=== PATIENT | male | born 1995 | race Caucasian/White ===

== ENCOUNTER 2022-10-06 17:07 | Emergency (ER) | payer OTHER, SELFPAY ==
[2022-10-06] VITALS (9 sets, daily range): BP systolic 125–149; BP diastolic 68–100; PULSE 103–118; RESP 18–20; TEMP 36.7; O2SAT 95–100; BMI 44.7
[2022-10-06 19:09] LABS: Basophils % 0.2 %; Eosinophils % 0.1 %; Hematocrit 46.8 % (42.0-52.0); Hemoglobin 15.9 g/dL (11.7-16.6); Lymphocytes # 0.5 10^3/uL (0.8-4.8); Lymphocytes % 2.9 %; Mean Corpuscular Hemoglobin 27.9 pg (28.0-34.0); Mean Corpuscular Volume 82.1 fl (80-94); Mean Platelet Volume 9.8 fL (7.4-10.4); Monocytes # 0.8 10^3/uL (0.2-0.9); Monocytes % 4.9 %; Neutrophils # 15.08 10^3/uL (1.8-7.7); Neutrophils % 91.6 %; Nucleated Red Blood Cells % 0 %; Platelet Count 408 10^3/cmm (130-400); Red Cell Distribution Width 13.4 % (12.1-15.1); White Blood Count 16.5 10^3/uL (4.0-10.0)
[2022-10-06 19:25] LABS: Alanine Aminotransferase 36 U/L (0-41); Albumin Level 4.8 g/dL (3.5-5.2); Alkaline Phosphatase 69 U/L (40-130); Anion Gap 21.7 (5-19); Aspartate Amino Transferase 24 U/L (0-40); Blood Urea Nitrogen 12 mg/dL (6-20); Calcium 9.7 mg/dL (8.5-10.5); Carbon Dioxide 22 mmol/L (22-29); Chloride 98 mmol/L (98-107); Globulin 3.5 g/dL (1.3-4.6); Glomerular Filtration Rate 101.2 mL/min (90-130); Glucose 115 mg/dL (65-115); Lipase 22 U/L (13-60); Osmolality Calculated 287 mOsm/kg (285-295); Potassium 3.7 mmol/L (3.5-5.1); Sodium 138 mmol/L (136-145); Total Bilirubin 0.6 mg/dL (0.15-1.2); Total Protein 8.3 g/dL (6.6-8.7)
--- NOTE | 2022-10-06 20:59 | XRR_ITS ---
PROCEDURE INFORMATION: Exam: XR Chest Exam date and time: 10/06/2022 9:10 PM Age: 26 years old Clinical indication: Cough and shortness of breath; Additional info: SOB TECHNIQUE: Imaging protocol: Radiologic exam of the chest. Views: 1 view. COMPARISON: No relevant prior studies available. FINDINGS: Lungs: Unremarkable. No consolidation. Pleural spaces: Unremarkable. No pleural effusion. No pneumothorax. Heart/Mediastinum: Unremarkable. No cardiomegaly. Bones/joints: Unremarkable. XR/XR chest 1V portable [id number] IMPRESSION: No acute findings.
--- NOTE | 2022-10-06 20:59 | USR_ITS ---
PROCEDURE INFORMATION: Exam: US Abdomen, Limited; Right Upper Quadrant Exam date and time: 10/06/2022 9:30 PM Age: 26 years old Clinical indication: Abdominal pain; Epigastric; Patient HX: S/P appy at age 15; Additional info: Ruq pain today TECHNIQUE: Imaging protocol: Real time ultrasound of the abdomen with image documentation. Limited exam focused on the right upper quadrant. COMPARISON: No relevant prior studies available. FINDINGS: Liver: Diffusely increased echogenicity of the liver parenchyma. No masses. Gallbladder: Normal. No gallstones. There is no gallbladder wall thickening. Biliary ducts: Normal. No stones. No dilation. Pancreas: Visualized pancreas is unremarkable. Right kidney: Right kidney measures 12.6 cm in length. No mass. No hydronephrosis. US/US gall bladder [id number] IMPRESSION: 1. No acute findings. 2. Hepatic steatosis.
--- NOTE | 2022-10-06 21:18 | W.ED.ABDPA2 ---
HPI - Abdominal Pain General: Chief Complaint: Abdominal Pain Stated Complaint: abd pain Time Seen by Provider: 10/06/22 20:22 Source: patient Mode of arrival: ambulatory Limitations: no limitations History of Present Illness: 26-year-old male who states he been having right upper quadrant abdominal pain throughout the day still to also had nausea and vomiting. States pain is sharp in nature he rates it a 6 out of 10 he denies any fevers he states it does radiate to his back slightly. Denies any worsening improving factors. Associated Symptoms: Reports nausea and vomiting; Denies chills, dysuria and fever(s) Review of Systems Const: Denies: fever(s), chills, body aches or change in appetite Eyes: Denies: blurry vision or eye discomfort ENMT: Denies: throat pain or dental pain Card: Denies: chest pain Resp: Denies: dyspnea GI: Reports: abdominal pain, nausea and vomiting : Denies: dysuria Musc: Denies: neck pain or back pain Skin/Breast: Denies: rash Neuro: Denies: headache(s) Psych: Denies: depression Angelo/Lymph: Denies: easy bruising All/Imm: Denies: urticaria PFSH ED PFSH: Surgical History History of appendectomy Social History (Updated 10/06/22 @ 21:26 by Cat Kirby MD) Substance/Drug Use: unknown Physical Exam Const: COMMON NORMALS: no acute distress, patient oriented x3 and healthy appearing HENMT: COMMON NORMALS: normocephalic and atraumatic HEAD & SCALP: normocephalic and atraumatic Eye: COMMON NORMALS: Equal, round and reactive pupils present and EOMs intact bilaterally PUPIL: Yes Equal, round and reactive pupils present Neck/C-Spine: COMMON NORMALS: full ROM and supple Chest: COMMONS NORMALS: normal inspection of the chest and normal palpation of entire chest wall Resp: COMMON NORMALS: normal respiratory effort, No retractions, No use of accessory muscles and clear to auscultation bilaterally AUSCULTATION: clear to auscultation bilaterally Cardio: COMMON NORMALS: regular rhythm and No murmurs present (Cardio) RATE: tachycardic RHYTHM: regular rhythm GI: COMMON NORMALS: Normal to inspection, nondistended, normoactive bowel sounds present, Soft to palpation and no masses PALPATION: Yes Soft to palpation and Yes Tenderness to palpation present (GI) Details: RUQ Extremity: COMMON NORMALS: normal to inspection and full ROM Neuro: COMMON NORMALS: patient oriented x3, moves all extremities and no focal motor deficits Psych: COMMON NORMALS: mental status grossly normal, Normal thought process present and cooperative THOUGHT PROCESS: Normal thought process present Skin: COMMON NORMALS: no rashes or lesions noted and no wounds GENERAL SKIN EXAM: no rashes or lesions noted Course Vital Signs: Vital signs: Vital Signs Temperature 98.0 F 10/06/22 17:43 Pulse Rate 103 H 10/06/22 23:05 Respiratory Rate 20 H 10/06/22 22:59 Blood Pressure 125/85 10/06/22 23:05 Pulse Oximetry 100 10/06/22 23:05 Oxygen Delivery Me thod 10/06/22 23:05 MDM - Abdominal Pain Medical Decision Making Patient presents here with right upper quadrant abdominal pain ultrasound CT shows no signs of cholecystitis pains improved we will start on pain meds getting follow-up with surgeon he is well-appearing here otherwise he stable for discharge. Lab Data 10/06/22 18:43 10/06/22 18:43 Labs/Radiology: Radiology Impressions Chest X-Ray 10/06/22 20:59 IMPRESSION: No acute findings. Gallbladder Ultrasound 10/06/22 20:59 IMPRESSION: 1. No acute findings. 2. Hepatic steatosis. Abdomen/Pelvis CT 10/06/22 22:20 IMPRESSION: 1. Mild nonspecific distention of the gallbladder. 2. No acute finding. COMMENTS: Consistent with the [employer]'s Incidental Findings Committee white paper (J Am Gabe Radiol 2018): Any incidental renal lesion less than 1 cm or classified as too small to characterize, or any incidental cystic renal lesion characterized as simple-appearing, is likely benign. No follow-up imaging is recommended for these lesions per consensus recommendations based on imaging criteria. Laboratory Results WBC 16.5 10^3/uL (4.0-10.0) H 10/06/22 18:43 RBC 5.70 10^6/uL (4.1-5.3) H 10/06/22 18:43 Hgb 15.9 g/dL (11.7-16.6) 10/06/22 18:43 Hct 46.8 % (42.0-52.0) 10/06/22 18:43 MCV 82.1 fl (80-94) 10/06/22 18:43 MCH 27.9 pg (28.0-34.0) L 10/06/22 18:43 MCHC 34.0 g/dL (30.0-36.0) 10/06/22 18:43 RDW 13.4 % (12.1-15.1) 10/06/22 18:43 Plt Count 408 10^3/cmm (130-400) H 10/06/22 18:43 MPV 9.8 fL (7.4-10.4) 10/06/22 18:43 Neut % (Auto) 91.6 % 10/06/22 18:43 Lymph % (Auto) 2.9 % 10/06/22 18:43 [place] % (Auto) 4.9 % 10/06/22 18:43 Eos % (Auto) 0.1 % 10/06/22 18:43 Baso % (Auto) 0.2 % 10/06/22 18:43 Neut # (Auto) 15.08 10^3/uL (1.8-7.7) H 10/06/22 18:43 Lymph # (Auto) 0.5 10^3/uL (0.8-4.8) L 10/06/22 18:43 [place] # (Auto) 0.8 10^3/uL (0.2-0.9) 10/06/22 18:43 Eos # (Auto) 0.0 10^3/uL (0.0-0.8) 10/06/22 18:43 Baso # (Auto) 0.0 10^3/uL (0.0-0.1) 10/06/22 18:43 Nucleated RBC % (auto) 0 % 10/06/22 18:43 Nucleated RBCs # 0.0 /100WBC 10/06/22 18:43 Sodium 138 mmol/L (136-145) 10/06/22 18:43 Potassium 3.7 mmol/L (3.5-5.1) 10/06/22 18:43 Chloride 98 mmol/L (98-107) 10/06/22 18:43 Carbon Dioxide 22 mmol/L (22-29) 10/06/22 18:43 Anion Gap 21.7 (5-19) H 10/06/22 18:43 BUN 12 mg/dL (6-20) 10/06/22 18:43 Creatinine 0.9 mg/dL (0.7-1.2) 10/06/22 18:43 GFR Calculation 101.2 mL/min (90-130) 10/06/22 18:43 Glucose 115 mg/dL (65-115) 10/06/22 18:43 Calculated Osmolality 287 mOsm/kg (285-295) 10/06/22 18:43 Calcium 9.7 mg/dL (8.5-10.5) 10/06/22 18:43 Total Bilirubin 0.6 mg/dL (0.15-1.2) 10/06/22 18:43 AST 24 U/L (0-40) 10/06/22 18:43 ALT 36 U/L (0-41) 10/06/22 18:43 Alkaline Phosphatase 69 U/L (40-130) 10/06/22 18:43 Troponin T Baseline 6 ng/L (0-15) 10/06/22 18:43 Troponin T 120 Minute 6.00 ng/L (0-15) 10/06/22 21:10 Delta Troponin T 0 ABS# (0-10) 10/06/22 21:10 Total Protein 8.3 g/dL (6.6-8.7) 10/06/22 18:43 Albumin 4.8 g/dL (3.5-5.2) 10/06/22 18:43 Globulin 3.5 g/dL (1.3-4.6) 10/06/22 18:43 Lipase 22 U/L (13-60) 10/06/22 18:43 Urine Color Yellow (Yellow) 10/06/22 21:40 Urine Appearance Clear (CLEAR) 10/06/22 21:40 Urine pH 6 (5-7) 10/06/22 21:40 Ur Specific [place] 1.015 (1.005-1.030) 10/06/22 21:40 Urine Protein Neg (Negative) 10/06/22 21:40 Urine Glucose (UA) Norm (Normal) 10/06/22 21:40 Urine Ketones Negative (Negative) 10/06/22 21:40 Urine Blood Neg (Negative) 10/06/22 21:40 Urine Nitrate Negative (Negative) 10/06/22 21:40 Urine Bilirubin Neg (Negative) 10/06/22 21:40 Urine Urobilinogen Norm mg/dL (Negative) 10/06/22 21:40 Ur Leukocyte Esterase Negative (Negative) 10/06/22 21:40 Discharge Plan Discharge Patient Disposition: Home Clinical Impression: Abdominal pain Condition: Stable Prescriptions: New hydrocodone-acetaminophen 5-325 mg tablet 1 tab PO Q6H PRN (Reason: pain) Qty: 14 0RF ondansetron 4 mg tablet,disintegrating 4 mg PO Q6H PRN (Reason: nausea and vomiting) Qty: 14 0RF Discharge Orders: Discharge ED (Routine); Ordered 10/06/22 Ordered By: Cat Kirby Referrals: Trevor Mary DO [Physician] - 1-3 days Discharge Diet: Advance as tolerated Discharge Activity: Resume usual activity Patient Instructions: Abdominal Pain (ED), Opioid Safety Coding Level of Care Code ED Money Room Supervisor for Anna Morley
[2022-10-06] MEDS: morphine 4 mg/mL SDV 1 mL IVP (21:34)
[2022-10-06] MEDS: ondansetron 2 mg/ML SDV 2 mL 4 MG IVP (21:35)
[2022-10-06 21:50] LABS: Troponin(5th) Baseline 6 ng/L (0-15)
[2022-10-06 21:51] LABS: Add Urine Microscopic? NO; Charge for UA Resulting for Rev
[2022-10-06 21:56] LABS: Bilirubin Urine Neg (Negative); Blood Urine Neg (Negative); Glucose Urine UA Norm (Normal); Ketones Urine Negative (Negative); Leukocyte Esterase Urine Negative (Negative); Nitrate Urine Negative (Negative); Protein Urine Neg (Negative); Specific Gravity, Urine 1.015 (1.005-1.030); Urine Appearance Clear (CLEAR); Urine Color Yellow (Yellow); Urobilinogen Urine Norm (Negative); pH Urine 6 (5-7)
[2022-10-06 22:15] LABS: Troponin 5 2HR Delta 0 ABS# (0-10)
--- NOTE | 2022-10-06 22:20 | CTR_ITS ---
PROCEDURE INFORMATION: Exam: CT Abdomen And Pelvis With Contrast Exam date and time: 10/06/2022 10:36 PM Age: 26 years old Clinical indication: Nausea and vomiting; Abdominal pain; Localized; Right upper quadrant (ruq); Prior surgery; Surgery type: Appy; Patient HX: C/O ruq pain with n/v. ; Additional info: Nathen crawford TECHNIQUE: Imaging protocol: Computed tomography of the abdomen and pelvis with contrast. Radiation optimization: All CT scans at this facility use at least one of these dose optimization techniques: automated exposure control; mA and/or kV adjustment per patient size (includes targeted exams where dose is matched to clinical indication); or iterative reconstruction. Contrast material: OMNI 350; Contrast volume: 100 ml; Contrast route: INTRAVENOUS (IV); REPORTING DATA: Count of CT and Cardiac NM exams in prior 12 months: This patient has received 0 known CTs and 0 known cardiac nuclear medicine studies in the 12 months prior to the current study. COMPARISON: US gall bladder [id number] 10/06/2022 9:30 PM RADIATION DOSE METRICS: Total DLP (mGy-cm): 1423.64 FINDINGS: Liver: There is no focal abnormality within the liver. Gallbladder and bile ducts: There is moderate distention of the gallbladder which measures 10.8 cm in length and 5 cm in greatest diameter. Pancreas: The pancreas is normal. Spleen: The spleen is normal. Adrenal glands: The adrenal glands are normal. Kidneys and ureters: 2 mm benign simple cyst mid left kidney. The right kidney is normal. There is no evidence of hydronephrosis. There is no stone along the course of either ureter. Stomach and bowel: There is no evidence of colitis/diverticulitis. There is no evidence of intestinal obstruction. Appendix: A normal appendix is identified. Intraperitoneal space: There is no evidence of free intraperitoneal fluid. Vasculature: The aorta is normal. Lymph nodes: There is no evidence of lymphadenopathy. Urinary bladder: Unremarkable as visualized. Reproductive: Unremarkable as visualized. Bones/joints: Unremarkable. No acute fracture. Soft tissues: Unremarkable. CT/CT abdomen pelvis w con* [id number] IMPRESSION: 1. Mild nonspecific distention of the gallbladder. 2. No acute finding. COMMENTS: Consistent with the [employer]'s Incidental Findings Committee white paper (J Am Gabe Radiol 2018): Any incidental renal lesion less than 1 cm or classified as too small to characterize, or any incidental cystic renal lesion characterized as simple-appearing, is likely benign. No follow-up imaging is recommended for these lesions per consensus recommendations based on imaging criteria.
[2022-10-06] MEDS: iohexol 350 mg/mL 500 mL Btl (per mL) IV (22:46)
--- NOTE | 2022-10-06 22:53 | ECG_ITS ---
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 Measurements Intervals Allison Rate: 103 P: 27 OH: 156 QRS: 28 QRSD: 81 T: -10 QT: 338 QTc: 444 Interpretive Statements SINUS TACHYCARDIA ST DEVIATION AND MODERATE T-WAVE ABNORMALITY, CONSIDER ANTERIOR ISCHEMIA [-0.1+ mV T-WAVE IN V3/V4] No previous ECG available for comparison Electronically Signed On 10-07-2022 21:52:58 STORE DIRECTOR by Christy Mathur M.D. [id number]
[2022-10-06] MEDS: HYDROmorphone 1 mg/mL INJ 1 mL IVP (22:59)
--- NOTE | 2022-10-07 08:31 | DCPLANNER ---
Addendum entered by Marycarmen Eid 10/10/22 13:01: concession manager called to confirm that [facility] received patients information, was told that clinic did received patients information. Addendum entered by Marycarmen Eid 10/10/22 08:18: concession manager received the following message from the general surgery clinic regarding follow up appointment for patient: Patient has [facility], please refer elsewhere concession manager called and explained this to patient. concession manager asked patient if he wanted to be referred to [facility] in [place]. Patient stated to send his information to [facility]. concession manager faxed patients information to [facility] general surgery. Original Note: concession manager had message to schedule a follow up appointment for patient with general surgery. concession manager sent patients information to the front staff at general surgery. Patients information will be printed and reviewed. Clinic will call patient with appointment information.
--- NOTE | 2022-10-17 15:17 | DCPLANNER ---
10.15.22 - patient was called due to no primary care physician - patient stated that [place] [facility] [place]
== END 2022-10-07 | disposition home or self-care (01) ==
PROVIDERS: Emergency Provider Emergency Medicine
DX: R10.11 Right upper quadrant pain (principal); K76.0 Fatty (change of) liver, not elsewhere classified
CPT/HCPCS: 36415; 71045; 74177; 76705; 80053; 81003; 83690; 84484; 85025; 93005; 96374; 96375; 99285; J1170; J2270; J2405; Q9967